=== PATIENT | male | born 1965 | race Caucasian/White ===

== ENCOUNTER 2022-08-14 09:20 | Observation (INO) ==
--- NOTE | 2022-07-17 11:38 | Anesthesiology Consultation ---
Date of Service July 17, 2022 Assessment & Plan (1) Encounter for pre-operative examination: - COVID screening: Per mule driver on 07/17/2022: Travel screen negative, no known COVID-19 positive contacts or current COVID-19 related symptoms in past 2 weeks. To surgeon's discretion if preop COVID testing is needed. Chart Review Chart Review: Acceptable Risk for Surgery and Patient NOT seen in Pre Admission Testing History Surgery Operation Date: 08/14/22 10:50 Proposed Procedures p Cystolithopaxy (Bladder Stone Fragmentation and Removal) - Kev Garcia MD s TURP (Transurethral Resection of the Prostate) - Kev Garcia MD Height/Weight Height: 6 ft Weight: 99 kg Allergies Allergy/AdvReac Type Severity Reaction Status Date / Time No Known Allergies Allergy Verified 07/17/22 10:47 Medications Home Medications Medication Instructions Recorded Confirmed Last Taken gemfibrozil 600 mg tablet 600 mg PO QPM 09/28/19 07/17/22 Unknown allopurinol 300 mg tablet 300 mg PO QPM 08/25/20 07/17/22 Unknown atenolol 100 mg tablet 100 mg PO QAM 08/25/20 07/17/22 Unknown lisinopril 10 mg tablet 10 mg PO QAM 05/21/22 07/17/22 Unknown nitrofurantoin macrocrystal 100 mg 100 mg PO BID PRN uti 07/17/22 07/17/22 Unknown capsule tamsulosin 0.4 mg capsule (Flomax) 0.4 mg PO QDL 07/17/22 07/17/22 Unknown Past Medical History Medical History Arthritis Benign localized prostatic hyperplasia with lower urinary tract symptoms (LUTS) Calcification of bladder Enteritis Gout Hernia History of COVID-19 07/2021--mild symptoms, no symptoms History of renal stone Hyperlipidemia Hypertension Past Family History Family History Father Kidney stones Hypertension Other No family history of adverse response to anesthesia Past Surgical History Surgical History H/O inguinal hernia repair [facility] rep [address] [place] H/O lithotripsy Social History Smoking Status: Never smoker Hx Alcohol Use: Yes Alcohol type: beer, wine and hard liquor alcohol intake frequency: a few times a week Hx Substance Use: No substance use type: does not use Lab Results Anesthesia Preop Results Results Anesthesia Widget: WBC 5.57 K/ul (4.8-10.8) 07/16/22 Hgb 16.4 g/dl (14.0-18.0) 07/16/22 Hct 46.8 % (40.1-51.0) 07/16/22 Plt 206 K/uL (130-400) 07/16/22 Na 139 mmol/L (136-145) 07/16/22 K 4.2 mmol/L (3.5-5.1) 07/16/22 Cl 104 mmol/L (98-107) 07/16/22 CO2 28 mmol/L (21-32) 07/16/22 BUN 14 mg/dl (6-23) 07/16/22 Creat 0.99 mg/dl (0.6-1.4) 07/16/22 Glucose Level 90 mg/dl (70-99(Fasting)) 07/16/22 Testing Electrocardiogram Date: 06/13/22 Sinus bradycardia, rate 56 bpm Incomplete RBBB Chest X-Ray Date: 06/13/22 The lungs are clear. Cardiac silhouette is normal in size. No pleural effusions. No pneumothorax. IMPRESSION: No acute process. Other Testing Abdomen pelvis CT 05/31/22 1. Wall thickening involving several loops of small bowel within the mid to lower abdomen with adjacent inflammatory stranding, interloop edema and trace free pelvic fluid is suggestive of a nonspecific enteritis. No bowel obstruction or pneumoperitoneum. 2. Nonobstructing left renal calculus. No ureteral calculi or hydronephrosis 3. There is an irregular 2.2 cm calcification within the urinary bladder which may simply represent a bladder calculus. This could be correlated with cystoscopy to exclude the less likely possibility of a calcified urothelial lesion. 4. Prostamegaly with urinary bladder wall thickening suggestive of chronic bladder outlet obstruction. 5. Moderate sized left inguinal hernia contains a portion of the urinary bladder. 6. Hepatic steatosis.
[~2022-08-14 09:20] MED LIST: CIPROFLOXACIN / D5W 400 MG/200 ML BAG IV SCH; LR 15ML/HR IV SCH
[2022-08-14] MEDS ORDERED: DEXAMETHASONE SOD INJ 4 MG/ML VIAL ONE (10:15)
[2022-08-14] MEDS ORDERED: PROPOFOL IV EMULSION 10 MG/ML 20 ML VIAL IV ONE (10:15)
[2022-08-14] MEDS ORDERED: ONDANSETRON INJ 2 MG/ML 2 ML VIAL ONE (10:15)
[2022-08-14] MEDS ORDERED: fentaNYL citrate 100 MCG/2 ML VIAL ONE ×2 (10:15→11:49)
[2022-08-14] MEDS ORDERED: MIDAZOLAM HCL 1 MG/ML 2ML VIAL ONE (10:28)
--- NOTE | 2022-08-14 10:47 | History & Physical Report ---
Date of Service August 14, 2022 Assessment & Plan (1) Kidney stones: (2) Calcification of bladder: Plan Plan for lithalopaxy and treatment of left ureteral stone risks, benefits, and expectations reviewed History of Present Illness Primary Care Provider: Yung Horton Large bladder calculus as well as suspected left ureteral caculus now presenting for cystolithalopaxy and left ureteroscopy/laser lithotripsy Allergies Allergy/AdvReac Type Severity Reaction Status Date / Time No Known Allergies Allergy Verified 08/14/22 10:00 Home Medications Medication Instructions Recorded Confirmed Type gemfibrozil 600 mg tablet 600 mg PO QPM 09/28/19 08/14/22 History allopurinol 300 mg tablet 300 mg PO QPM 08/25/20 08/14/22 History atenolol 100 mg tablet 100 mg PO QAM 08/25/20 08/14/22 History lisinopril 10 mg tablet 10 mg PO QAM 05/21/22 08/14/22 History nitrofurantoin macrocrystal 100 mg 100 mg PO BID PRN uti 07/17/22 08/14/22 History capsule tamsulosin 0.4 mg capsule (Flomax) 0.4 mg PO QDL 07/17/22 08/14/22 History Past Med/Surg History Medical History Arthritis Benign localized prostatic hyperplasia with lower urinary tract symptoms (LUTS) Calcification of bladder Enteritis Gout Hernia History of COVID-19 07/2021- mild symptoms, resolved History of renal stone Hyperlipidemia Hypertension Surgical History H/O inguinal hernia repair [facility] rep [address] [place] [address] [place] H/O lithotripsy S/P left inguinal hernia repair Robotic Laparoscopic Left Inguinal Hernia Family History Father Kidney stones Hypertension Other No family history of adverse response to anesthesia Social History Smoking Status: Never smoker Second Hand Exposure: No; Do You Dip or Chew Tobacco: No; Hx Alcohol Use: Yes Alcohol type: beer, wine and hard liquor Alcohol Intake Frequency: 4 or More x per/Week Hx Substance Use: No Preferred Language: Guyanese Communication Ability: Effective Visual Impairment: No Limitations Tile And Marble Setter Required: No Beliefs That Will Affect Care: None marital status: Current Living Situation: Spouse and Family Current Living Situation Comment: Lives with and daughter current occupational status: employed current occupation: Manager [employer] How many Children do You have: 2 Feels Safe at Home: Yes Safety Concerns: Feels Safe At This Time during the past year weight has: remained stable Assistive Devices: Glasses Physical Exam Constitutional: well developed and well nourished Neck: neck nontender Respiratory: normal respiratory effort; no respiratory distress and does not use accessory muscles Cardiovascular: Rate/Rhythm: regular rate Vessels: radial pulses present Extremities: no edema Gastrointestinal (Abdomen): Inspection/Auscultation: abdomen normal to inspection Percussion/Palpation: abdomen soft; abdomen nontender and no guarding Musculoskeletal: Head/Neck/Chest: normocephalic and head atraumatic Extremities: extremities normal to inspection Skin: no rashes and no lesions Trauma: no evidence of skin trauma Neurologic: awake; not obtunded Speech / Cognition: normal speech Motor/Sensory: no tremor Psychiatric: Orientation: alert and oriented x 3 Genitourinary: no CVA tenderness Lymphatic: no lymphadenopathy Results & Data ([facility]) Vital Signs (Past 12 Hours) Vital Signs Temp Pulse Resp BP Pulse Ox O2 Del Method 08/14/22 09:45 36.6 C 65 18 138/97 98 Room Air
[2022-08-14] MEDS ORDERED: FLUMAZENIL 0.1 MG/1 ML 10 ML VIAL IV PRN (11:05)
[2022-08-14] MEDS ORDERED: ATROPINE SULFATE 0.1 MG/ML 10ML SYR IV PRN (11:05)
[2022-08-14] MEDS ORDERED: LABETALOL HCL IV 5 MG/ML 20ML IV PRN (11:05)
[2022-08-14] MEDS ORDERED: ONDANSETRON INJ 2 MG/ML 2 ML VIAL IV PRN (11:05)
[2022-08-14] MEDS ORDERED: PROMETHAZINE HCL 12.5 MG in SODIUM CHLORIDE 0.9% 50 ML IV PRN (11:05)
[2022-08-14] MEDS ORDERED: NALOXONE HCL 0.4 MG/1 ML VIAL/CARP IV PRN (11:05)
[2022-08-14] MEDS ORDERED: ePHEDrine sulfate 50 MG/ML AMP IV PRN (11:05)
[2022-08-14] MEDS ORDERED: fentaNYL citrate 100 MCG/2 ML VIAL IV PRN (11:05)
[2022-08-14] MEDS ORDERED: DIATRIZOATE MEGLUMINE 30% 100ML VIAL INSTIL PRN (12:23)
[2022-08-14] MEDS ORDERED: ACETAMINOPHEN 325 MG TAB PO PRN (12:32)
[2022-08-14] MEDS ORDERED: HYDROCODONE/ACETAMOPHEN 5/325MG TAB PO PRN (12:32)
--- NOTE | 2022-08-14 12:40 | Operative Report ---
PG Post Operative Report Pre & Post Diagnosis Operation Date: 08/14/22 11:00 Pre-Op Diagnosis: Bladder Stone Benign Prostatic Hyperplasia Left Renal Stone Post-Op Diagnosis: Bladder Stone Benign Prostatic Hyperplasia Left Renal Stone I identified the patient and participated in the time-out.: Yes Procedure Operation Date: 08/14/22 11:00 Actual Procedures p Cystolithopaxy - Kev Garcia MD s Transurethral Resection of the Prostate - Kev Garcia MD s Left Retrograde Pyelogram, Left Ureteroscopic Laser Lithotripsy with Left Ureteral Stent Insertion(Left) - Kev Garcia MD Surgeon Kev Garcia MD Wastewater Superintendent NONE Estimated Blood Loss 0 Findings Consistent with Post-Op Diagnosis Specimens Bladder stones Description of Procedure The patient was identified in the preoperative holding area, appropriate informed consents were reviewed and completed and the patient was transferred to the operative suite. Upon arrival, appropriate antibiotics and anesthesia were administered and the patient was placed in dorsal lithotomy position and prepped and draped in sterile fashion. To begin the case I passed a 26 Cypriot resectoscope with 30 g of visual obturator. Inspection revealed healthy-appearing urethra but a moderately enlarged prostate with a high bladder neck. Immediately upon entry into the bladder I identified a large mimi stone as well as a smaller stone sitting in the dependent portion of the bladder. The ureteral orifices were identified. After photographing the stone for documentation I used the laser fiber to fragment the stone and irrigated all stone pieces out of the bladder. I then exchanged the laser bridge for a resecting element and utilized a button electrode to perform a TURP. I first incised the bladder neck at 5 and 7:00 and then flattened it. I then resected the left and right lateral lobes. This opened the prostate very nicely. He had numerous prostatic calcifications that I irrigated out of the bladder. After confirming completion of the TURP and bladder stone, I turned my attention to the left ureter. I intubated with a sensor wire and a 10 Cypriot double-lumen catheter. I performed retrograde pyelogram which confirmed a clear ureter, I advanced 2 wires into the kidney advance the scope. This pushed the stone from the UPJ back into the kidney. I was able to easily identify this and used a 365 m laser fiber to fragment the stone entirely. I performed repeat renoscopy and a careful exit ureteroscopy confirmed a clear ureter. A 6 Cypriot by 26 cm stent was placed with a string left attached. This string was tied to the Moreno catheter which was then inserted. He was reversed of anesthesia and taken to the recovery room in stable condition for there were no complications. Bladder stones were collected and passed off the table for chemical analysis. I attest to the content of the Intraoperative Record and any orders documented therein. Any exceptions are noted below.
[2022-08-14] MEDS ORDERED: SODIUM CHLORIDE 0.9% 1000ML 1,000 ML IV SCH (12:45)
--- NOTE | 2022-08-14 13:08 | Fluoroscopy Report ---
FL KUB CLINICAL HISTORY: Cysto TECHNIQUE: 1 views were obtained with the C-arm in the OR with the above procedure. Total fluoroscopy time was 21.9 seconds. Radiation dose was 5.83 mGy. Comparison: Comparison is made to CT abdomen pelvis 05/31/2022 FINDINGS/IMPRESSION: Intraoperative images were obtained of left laser lithotomy and stent placement. Please correlate with intraoperative fluoroscopy and operative report. ACT 112: Negative or not required by law. Electronically signed by: Ned Newman M.D. 08/14/2022 1:06 PM
--- NOTE | 2022-08-14 14:02 | Anesthesiology Progress Note ---
Date of Service August 14, 2022 Anesthesia Post Procedure Vital Signs Vital Signs: Temp Pulse Pulse Resp BP Pulse Ox O2 Del Method 08/14/22 13:32 36.8 C 63 16 162/98 H 94 Room Air 08/14/22 13:00 65 13 145/89 H 98 Oxymask 08/14/22 13:10 36.7 C 63 14 145/89 H 95 Room Air 08/14/22 12:50 67 13 153/89 H 98 Oxymask 08/14/22 12:44 36.9 C 72 14 145/87 H 99 Oxymask 08/14/22 09:45 36.6 C 65 18 138/97 98 Room Air O2 Flow Rate 08/14/22 13:32 08/14/22 13:00 1 08/14/22 13:10 08/14/22 12:50 3 08/14/22 12:44 5 08/14/22 09:45 Pain Intensity Lower Medial Abdomen: Pain Intensity: 8 Transfer of Care Handoff Completed per policy Notes Mental Status: alert / awake / arousable Patient Amnestic to Procedure: Yes Nausea / Vomiting: adequately controlled Pain: adequately controlled Airway Patency, RR, SpO2: stable & adequate BP & HR: stable & adequate Hydration State: stable & adequate Anesthetic Complications: no major complications apparent
[2022-08-14] MEDS ORDERED: KETOROLAC 30 MG/ML VIAL ONE (15:44)
[2022-08-14] MEDS: SODIUM CHLORIDE 0.9% 500 ML IV SCH ×2 (17:03→23:18)
[2022-08-14] MEDS ORDERED: gemfibroziL 600 MG TAB PO SCH (21:00)
[2022-08-14] MEDS ORDERED: allopurinoL 300 MG TAB PO SCH (21:00)
[2022-08-14] MEDS: DOCUSATE SODIUM 100 MG CAP PO SCH (21:06)
[2022-08-14] MEDS: KETOROLAC 30 MG/ML VIAL IV PRN (21:09)
[2022-08-15] MEDS: SODIUM CHLORIDE 0.9% 500 ML IV SCH ×3 (02:50→11:06)
[2022-08-15] MEDS: KETOROLAC 30 MG/ML VIAL IV PRN ×2 (05:07→11:03)
[2022-08-15] MEDS: DOCUSATE SODIUM 100 MG CAP PO SCH (08:00)
[2022-08-15] MEDS ORDERED: ATENOLOL 50 MG TABLET PO SCH (09:00)
[2022-08-15] MEDS ORDERED: lisinopril 10 MG TAB PO SCH (09:00)
--- NOTE | 2022-08-15 12:06 | Discharge Summary ---
Date of Service August 15, 2022 Admission HPI Per Admitting Provider Large bladder calculus as well as suspected left ureteral caculus now presenting for cystolithalopaxy and left ureteroscopy/laser lithotripsy Admission Exam Per Admitting Provider Constitutional: well developed and well nourished Neck: neck nontender Respiratory: normal respiratory effort; no respiratory distress and does not use accessory muscles Cardiovascular: Rate/Rhythm: regular rate Vessels: radial pulses present Extremities: no edema Gastrointestinal (Abdomen): Inspection/Auscultation: abdomen normal to inspection Percussion/Palpation: abdomen soft; abdomen nontender and no guarding Musculoskeletal: Head/Neck/Chest: normocephalic and head atraumatic Extremities: extremities normal to inspection Skin: no rashes and no lesions Trauma: no evidence of skin trauma Neurologic: awake; not obtunded Speech / Cognition: normal speech Motor/Sensory: no tremor Psychiatric: Orientation: alert and oriented x 3 Genitourinary: no CVA tenderness Lymphatic: no lymphadenopathy Principal Diagnosis Bladder Stone, Benign Prostatic Hyperplasia, Left Renal Stone Discharge Exam Constitutional no acute distress Respiratory no respiratory distress and no labored breathing Neurologic moves all extremities and awake Psychiatric Orientation: alert and oriented x 3 Discharge Data Allergies Allergy/AdvReac Type Severity Reaction Status Date / Time No Known Allergies Allergy Verified 08/14/22 10:00 Procedures Performed Operation Date: 08/14/22 11:00 Actual Procedures p Cystolithopaxy - Kev Garcia MD s Transurethral Resection of the Prostate - Kev Garcia MD s Left Retrograde Pyelogram, Left Ureteroscopic Laser Lithotripsy with(Left) - Kev Garcia MD s Left Ureteral Stent Insertion(Left) - Kev Garcia MD Ordered Studies 08/14/22 FL KUB Routine Hospital Course (1) Benign localized prostatic hyperplasia with lower urinary tract symptoms (LUTS): (2) Calcification of bladder: (3) Kidney stones: Plan 56-year-old male admitted status post TURP, laser litholapaxy and left ureteroscopy laser lithotripsy on 08/14/2022. Patient tolerated procedure well. No acute issues postoperatively. He remained afebrile and hemodynamically stable. The left stent was attached to the urinary catheter and was removed on postop day #1 without difficulty. Patient was voiding spontaneously following catheter removal. No reported pain. Tolerated diet. Ambulated without issue. He was subsequently discharged home in stable condition on postop day #1. Discharge instructions were reviewed, all questions were answered. Total Time Total Time Spent Total Time Spent (In Minutes): 15 Discharge Plan Discharge Items Patient Disposition: Home - Self-Care Reason For Visit: Calcification of Bladder, Benign Localized Prostat Discharge Diagnosis: calcification of bladder; BPH; left ureteral calculus Activity: Resume your previous activity Lifting: Gradually increase as tolerated Bathing: No limitations Sexual Activity: When tolerated Exercise/Sports: Gradually increase as tolerated Driving/Machine Use: Do not drive if taking prescription pain medication Non-emergency contact: Surgeon and Urologist Call non-emergency contact if: you have any medication questions, your pain is not controlled, your pain is worsening, you have a fever and your temperature is above 101.5 Follow-up/Referrals: Kev Garcia MD [Physician] - Yung Horton [Primary Care Provider] - Diet: Regular Addtl Attending Provider Instructions: Please take all medications as prescribed and keep all follow-ups as scheduled. Please call our office at [phone] with any questions, concerns or need to reschedule appointments for any reason. We are happy to assist you. Tips for your recovery at home: Dont be alarmed by brownish or reddish blood or clots in your urine. This is a result of the procedure. This may occur off and on for weeks to months after the procedure but should continue to improve. Drink plenty of fluids during the day (enough to keep your urine very light colored). This will help keep a healthy flow of urine. Avoid constipation. Please use a stool softener (Colace) if needed for the first two weeks after your procedure. Be sure to finish the antibiotics as prescribed. When to call [facility] at [phone]: Your urine contains heavy blood clots or you are unable to urinate. You are constantly leaking urine. Fever of 101F or higher, chills, nausea, or vomiting. Your pain is not relieved with medication. Pending Studies at Discharge: No Stand-Alone Forms: My [facility] Medications and DC Order Prescriptions: New hydrocodone-acetaminophen 5-325 mg tablet 1 tab PO Q6H PRN (Reason: pain) Qty: 20 0RF ciprofloxacin HCl [Cipro] 500 mg tablet 500 mg PO BID Qty: 6 0RF Continued gemfibrozil 600 mg tablet 600 mg PO QPM lisinopril 10 mg tablet 10 mg PO QAM atenolol 100 mg tablet 100 mg PO QAM allopurinol 300 mg tablet 300 mg PO QPM tamsulosin [Flomax] 0.4 mg capsule 0.4 mg PO QDL Discontinued nitrofurantoin macrocrystal 100 mg capsule 100 mg PO BID PRN (Reason: uti) Rx Instructions: must administer with a meal/food please start this med if you suspect a UTI - use for 5days Discharge Orders: Discharge Order (Routine); Ordered 08/15/22 Ordered By: Ilana Milan/Other Patient Handouts: Indwelling Urinary Catheter Dc Admission Data Admit Date/Time: 08/14/22 15:44 Attending Provider: Kev Garcia Admit Provider: Kev Garcia Primary Care Provider: Yung Horton Other Interventions: Discharge Summary Assessment (RN) Last Done: 08/15/22 12:21 Coding Level of Care Code D/C DAY MANAGEMENT <30 MINS Diagnoses Benign localized prostatic hyperplasia with lower urinary tract symptoms (LUTS) N40.1 Calcification of bladder N32.89 Kidney stones N20.0
--- NOTE | 2022-08-15 12:35 | Urology Progress Note ---
Date of Service August 15, 2022 Assessment & Plan (1) Kidney stones: (2) Benign localized prostatic hyperplasia with lower urinary tract symptoms (LUTS): (3) Calcification of bladder: Plan Postop day #1 status post TURP, laser litholapaxy and left ureteroscopy laser lithotripsy Remove catheter and stent this morning and discharge home Admission and Anticipated Discharge Date Admission Date: August 14, 2022 Subjective Doing very well after his TURP Left stent is attached to his catheter and will be removed this morning Results & Data ([facility]) Vital Signs (Past 12 Hours) Vital Signs Temp Pulse Resp BP Pulse Ox O2 Del Method 08/15/22 12:21 36.7 C 61 16 144/83 H 96 08/15/22 07:11 36.7 C 61 16 144/83 H 96 Room Air PG Care Time/CCT Total # of Minutes Spent Total Time Spent with Patient: Total time spent is greater than 50% in coordination of care (as documented) at patient's floor/unit and/or counseling patient: Coding Level of Care Code None Diagnoses Kidney stones N20.0 Benign localized prostatic hyperplasia with lower urinary tract symptoms (LUTS) N40.1 Calcification of bladder N32.89
== END 2022-08-15 12:41 | disposition home or self-care (01) ==
LOC: 3E 09:20 → ASU 09:20